=== PATIENT | male | born 1970 | race Caucasian/White ===

== ENCOUNTER 2017-07-21 14:44 | Emergency (ER) | END 2017-07-21 16:53 | disposition home or self-care (01) ==

== ENCOUNTER 2017-11-04 07:22 | Emergency (ER) | END 2017-11-04 09:00 | disposition home or self-care (01) ==

== ENCOUNTER 2017-11-05 10:52 | Emergency (ER) | END 2017-11-05 12:59 | disposition home or self-care (01) ==